=== PATIENT | female | born 1945 | race Caucasian/White ===

== ENCOUNTER 2019-05-28 06:57 | Inpatient (IN) ==
[2019-05-28 08:26] LABS: VBG Base Excess -25.6 MEQ/L (0-4); VBG PCO2 22.3 MMHG (41-51); VBG PH 6.985
[2019-05-28 08:52] LABS: Basophils # 0.1 10*3/uL (0.0-0.2); Basophils % 0.6 % (0.0-0.8); Eosinophils # 0.1 10*3/uL (0.0-0.87); Eosinophils % 0.3 % (0.00-10.9); Hematocrit 38.9 VOL% (35.7-47.0); Immature Granulocytes % 1.9 %; Immature Granulocytes Absolute 0.39 #; Lymphocytes # 1.8 10*3/uL (1.4-4.0); Lymphocytes % 8.9 % (21.3-54.2); Mean Corpuscular HGB Conc 28.8 GM/DL (32-36); Mean Corpuscular Volume 103.7 FL (87-102); Mean Platelet Volume 10.8 FL (9.6-12.0); Monocytes % 7.2 % (1.7-12.7); Neutrophils % 81.1 % (38.7-73.9); Platelet Count 367 T/CUMM (130-400); Red Blood Count 3.75 MC/CUMM (3.8-5.5); Red Cell Distribution Width 13.8 % (9.3-17.3); White Blood Count 20.5 T/CUMM (4-12)
[2019-05-28 08:55] LABS: Hemoglobin 11.2 GM/DL (12.0-16.0)
[2019-05-28 09:00] LABS: Amorphous Crystals,Urine Few /HPF (Few); Apearance,Urine Slightly Hazy (Clear); Bilirubin,Urine Negative (Negative); Blood, Urine Negative (Negative); Glucose,Urine (UA) >=500 mg/dL (Negative); Ketones,Urine 20 mg/dL (Negative); Mucus,Urine Occasional /LPF (Occasional); Nitrite,Urine Negative (Negative); Protein,Urine Negative; RBC,Urine <1 /HPF (0-4); Squamous Epithelial Cell,Urine Occasional /HPF (0-10); Urine Color Yellow (Yellow); Urine Specific Gravity 1.017 (1.001-1.035); Urine Urobilinogen < 2.0 EU/DL (0.2-1.0); WBC,Urine <1 /HPF (0-6)
[2019-05-28 09:02] LABS: Eosinophils 2 % (0-10); Hypochromasia Slight; Lymphocytes 8 % (20-55); Platelet Estimate Adequate; Segmented Neutrophils 82 % (50-85); Total Cells Counted 100
[2019-05-28 09:08] LABS: Alanine Aminotransferase 24 U/L (13-56); Albumin 3.6 G/DL (3.4-5.0); Alkaline Phosphatase 113 U/L (45-117); Aspartate Amino Transferase 18 U/L (0-37); Blood Urea Nitrogen 47 MG/DL (7-18); Calcium 9.8 MG/DL (8.5-10.1); Estimated Glom Filtration Rate 21 ML/MIN; Osmolality,Calculated 319.2 MOS/KG (273-304); Total Protein 7.7 G/DL (6.4-8.3)
[2019-05-28 09:11] LABS: Glucose 1061 MG/DL (74-106)
[2019-05-28 09:23] LABS: Barbiturates Screen,Urine Negative (Negative); Benzodiazepines Screen,Urine Negative (Negative); Cannabinoid Screen,Urine Negative (Negative); Opiate Screen,Urine Negative (Negative); Phencyclidine Screen,Urine Negative (Negative)
[2019-05-28] MEDS ORDERED: SODIUM CHLORIDE 0.9% 2,000 ML IV STA (09:28)
[2019-05-28] MEDS ORDERED: INSULIN REGULAR 100 UNIT/ML IV STA ×2 (09:54→14:10)
[2019-05-28] MEDS ORDERED: LORazepam INJ 40 MG in DEXTROSE 5% 30 ML IV PRN (09:55)
[2019-05-28] MEDS ORDERED: ONDANSETRON 4 MG/2 ML VIAL IV PRN (09:55)
[2019-05-28] MEDS ORDERED: SODIUM CHLORIDE 0.9% 2,100 ML IV ONE (09:55)
[2019-05-28] MEDS ORDERED: ALBUTEROL 2.5 MG/3 ML NEB RESP TX PRN (09:55)
[2019-05-28] MEDS ORDERED: SODIUM BICARBONATE 50 MEQ/50 ML VIAL IV ONE ×2 (09:55→18:00)
[2019-05-28] MEDS ORDERED: EPINEPHrine 1 MG/10 ML SYRINGE ONE (09:59)
[2019-05-28] MEDS ORDERED: NOREPINEPHRINE 8 MG in SODIUM CHLORIDE 0.9% 242 ML IV SCH (10:00)
[2019-05-28] MEDS ORDERED: EPINEPHrine 1 MG/10 ML SYRINGE IV ONE (10:00)
[2019-05-28] MEDS ORDERED: ROCURONIUM 100 MG/10 ML VIAL IV ONE ×2 (10:00→11:12)
[2019-05-28] MEDS ORDERED: ETOMIDATE 20 MG/10 ML VIAL IV ONE ×2 (10:00→11:10)
[2019-05-28] MEDS ORDERED: NOREPINEPHRINE 4 MG/4 ML VIAL IV ONE (10:08)
[2019-05-28] MEDS ORDERED: SODIUM BICARB INJ 100 MEQ in STERILE WATER INJ 400 ML IV PRN (10:13)
[2019-05-28] MEDS ORDERED: MAGNESIUM SULF RIDER 4 GM in PREMIX 1 EACH IV PRN (10:13)
[2019-05-28] MEDS ORDERED: DEXTROSE 50% 25 GM/50 ML VIAL IV PRN ×2 (10:13)
[2019-05-28] MEDS ORDERED: POTASSIUM CHLORIDE RIDER 10 MEQ in PREMIX 1 EACH IV PRN (10:13)
[2019-05-28] MEDS ORDERED: SODIUM PHOSPHATE INJ 17.6 MMOL in SODIUM CHLORIDE 0.9% 250 ML IV PRN (10:13)
[2019-05-28] MEDS ORDERED: MAGNESIUM SULF RIDER 2 GM in PREMIX 1 EACH IV PRN (10:13)
[2019-05-28] MEDS ORDERED: NOREPINEPHRINE 4 MG in SODIUM CHLORIDE 0.9% 242 ML IV PRN (11:04)
[2019-05-28] MEDS ORDERED: NOREPINEPHRINE 4 MG in SODIUM CHLORIDE 0.9% 246 ML IV PRN (11:07)
[2019-05-28] MEDS ORDERED: HEPARIN/NACL 0.9% 2 UNITS/ML 500 ML IV ONE (11:17)
[2019-05-28] MEDS ORDERED: VANCOMYCIN INJ 1,000 MG in SODIUM CHLORIDE 0.9% 250 ML IV PRN (11:28)
[2019-05-28] MEDS: INSULIN REGULAR DRIP 100 ML IV PRN ×2 (11:50→19:04)
[2019-05-28] MEDS: SODIUM CHLORIDE 0.9% 1,000 ML IV SCH ×2 (11:51→13:36)
[2019-05-28] MEDS ORDERED: CALCIUM GLUCONATE 2,000 MG in SODIUM CHLORIDE 0.9% 100 ML IV ONE (12:00)
[2019-05-28 12:13] LABS: Calcium 8.7 MG/DL (8.5-10.1); Osmolality,Calculated 328.7 MOS/KG (273-304)
[2019-05-28 12:30] LABS: ABG HCO3 8.7 MMOL/L (20-26); ABG Oxygen Saturation 99.7 % (95-100); ABG PCO2 28.1 MM HG (35-48); ABG TCO2 7.4 MMOL/L (23-27)
[2019-05-28 12:32] LABS: ABG PH 7.044 (7.35-7.45)
[2019-05-28] MEDS: INSULIN REGULAR 100 UNIT/ML IV PRN (12:40)
[2019-05-28] MEDS: PIPERACILLIN/TAZOBACTAM 3,375 MG in SODIUM CHLORIDE 0.9% 100 ML IV SCH ×2 (12:58→19:00)
[2019-05-28] MEDS: FAMOTIDINE 20 MG/2 ML VIAL IV SCH (13:03)
[2019-05-28] MEDS: ALBUTEROL/IPRATROPIUM 3 ML NEB RESP TX SCH ×2 (13:30→19:07)
[2019-05-28] MEDS ORDERED: VANCOMYCIN INJ 1,000 MG in SODIUM CHLORIDE 0.9% 250 ML IV ONE (14:00)
[2019-05-28 14:25] LABS: Calcium 8.2 MG/DL (8.5-10.1); Osmolality,Calculated 330.4 MOS/KG (273-304)
[2019-05-28] MEDS ORDERED: SODIUM CHLORIDE 0.9% 1,000 ML IV SCH (15:13)
[2019-05-28 16:19] LABS: ABG PCO2 23.5 MM HG (35-48)
[2019-05-28 16:20] LABS: ABG Base Excess -22.4 MMOL/L (-2.5-2.5); ABG HCO3 6.4 MMOL/L (20-26); ABG Oxygen Saturation 14.7 % (95-100); ABG TCO2 7.1 MMOL/L (23-27)
[2019-05-28 16:22] LABS: ABG PH 7.052 (7.35-7.45)
[2019-05-28] MEDS: SODIUM CHLORIDE 23.4% CONC INJ 38.5 MEQ, SODIUM BICARB INJ 100 MEQ in STERILE WATER INJ... IV SCH ×2 (17:50→21:57)
[2019-05-28] MEDS ORDERED: SODIUM BICARB INJ 50 MEQ in DEXTROSE 5% 1,000 ML IV SCH (18:00)
[2019-05-28 18:21] LABS: ABG Base Excess -14.6 MMOL/L (-2.5-2.5); ABG HCO3 11.3 MMOL/L (20-26); ABG Oxygen Saturation 99.2 % (95-100); ABG PCO2 26.7 MM HG (35-48); ABG PH 7.243 (7.35-7.45); ABG PO2 323.5 MM HG (80-95); ABG TCO2 12.1 MMOL/L (23-27)
[2019-05-28 19:56] LABS: Calcium 8.4 MG/DL (8.5-10.1)
[2019-05-28] MEDS: POTASSIUM CHLORIDE RIDER 20 MEQ in PREMIX 1 EACH IV PRN ×2 (20:40→23:23)
[2019-05-28 22:16] LABS: ABG Base Excess -7.2 MMOL/L (-2.5-2.5); ABG HCO3 18.6 MMOL/L (20-26); ABG PCO2 28.3 MM HG (35-48); ABG PH 7.385 (7.35-7.45); ABG TCO2 15.7 MMOL/L (23-27)
[2019-05-28 22:41] LABS: Osmolality,Calculated 323.6 MOS/KG (273-304)
[2019-05-29] MEDS: ALBUTEROL/IPRATROPIUM 3 ML NEB RESP TX SCH ×4 (01:54→19:33)
[2019-05-29] MEDS: SODIUM CHLORIDE 0.9% 1,000 ML IV SCH ×2 (02:57→09:29)
[2019-05-29] MEDS: PIPERACILLIN/TAZOBACTAM 3,375 MG in SODIUM CHLORIDE 0.9% 100 ML IV SCH ×3 (02:57→18:01)
[2019-05-29] MEDS: INSULIN REGULAR 100 UNIT/ML IV PRN ×4 (03:25→16:18)
[2019-05-29 03:36] LABS: Basophils % 0.2 % (0.0-0.8); Hematocrit 24.2 VOL% (35.7-47.0); Hemoglobin 8.1 GM/DL (12.0-16.0); Immature Granulocytes % 0.8 %; Immature Granulocytes Absolute 0.11 #; Lymphocytes # 1.3 10*3/uL (1.4-4.0); Lymphocytes % 9.6 % (21.3-54.2); Mean Corpuscular HGB Conc 33.5 GM/DL (32-36); Mean Corpuscular Volume 88.6 FL (87-102); Neutrophils % 82.4 % (38.7-73.9); Platelet Count 188 T/CUMM (130-400); Red Blood Count 2.73 MC/CUMM (3.8-5.5); Red Cell Distribution Width 13.5 % (9.3-17.3); White Blood Count 13.1 T/CUMM (4-12)
[2019-05-29 03:43] LABS: INR 1.1; PT Patient Result 11.6 SECS (9.6-12.2)
[2019-05-29 03:54] LABS: ABG Base Excess -3.6 MMOL/L (-2.5-2.5); ABG HCO3 21.4 MMOL/L (20-26); ABG PCO2 23.7 MM HG (35-48); ABG PH 7.502 (7.35-7.45); ABG TCO2 17.2 MMOL/L (23-27)
[2019-05-29 04:02] LABS: Albumin 2.3 G/DL (3.4-5.0); Bilirubin,Total 0.4 MG/DL (0.2-1.0); Calcium 7.6 MG/DL (8.5-10.1); Osmolality,Calculated 312.6 MOS/KG (273-304); Risk Ratio 2.24; Total Protein 5.2 G/DL (6.4-8.3)
[2019-05-29] MEDS: SODIUM CHLORIDE 23.4% CONC INJ 38.5 MEQ, SODIUM BICARB INJ 100 MEQ in STERILE WATER INJ... IV SCH (09:01)
[2019-05-29 09:12] LABS: Calcium 7.6 MG/DL (8.5-10.1); Osmolality,Calculated 308.7 MOS/KG (273-304)
[2019-05-29 09:31] LABS: ABG Base Excess -6.7 MMOL/L (-2.5-2.5); ABG HCO3 18.9 MMOL/L (20-26); ABG Oxygen Saturation 99.8 % (95-100); ABG PCO2 28.6 MM HG (35-48); ABG TCO2 16.1 MMOL/L (23-27)
[2019-05-29] MEDS: SODIUM CHLORIDE 0.45% 1,000 ML IV SCH ×4 (09:58→22:25)
[2019-05-29] MEDS: POTASSIUM CHLORIDE RIDER 20 MEQ in PREMIX 1 EACH IV PRN ×3 (10:46→23:54)
[2019-05-29] MEDS: SODIUM BICARB INJ 100 MEQ in DEXTROSE 5% NACL 0.22% 1,000 ML IV SCH (10:55)
[2019-05-29] MEDS ORDERED: VANCOMYCIN INJ 1,000 MG in SODIUM CHLORIDE 0.9% 250 ML IV ONE (11:00)
[2019-05-29] MEDS: FAMOTIDINE 20 MG/2 ML VIAL IV SCH (12:26)
[2019-05-29 12:52] LABS: ABG HCO3 21.1 MMOL/L (20-26); ABG Oxygen Saturation 99.8 % (95-100); ABG PCO2 32.2 MM HG (35-48); ABG PH 7.403 (7.35-7.45); ABG TCO2 18.7 MMOL/L (23-27)
[2019-05-29 13:14] LABS: Calcium 7.5 MG/DL (8.5-10.1); Osmolality,Calculated 306.6 MOS/KG (273-304)
[2019-05-29] MEDS: DEXT 5% NACL 0.45% KCL 20 MEQ 20 MEQ/1,000 ML BAG IV SCH ×2 (14:44→20:46)
[2019-05-29 17:18] LABS: Calcium 7.3 MG/DL (8.5-10.1); Osmolality,Calculated 304.6 MOS/KG (273-304)
[2019-05-29] MEDS: SODIUM CHLOR 0.45% KCL 20 MEQ 20 MEQ/1,000 ML BAG IV SCH ×2 (17:40→21:41)
[2019-05-29 21:47] LABS: Osmolality,Calculated 299.4 MOS/KG (273-304)
[2019-05-29] MEDS ORDERED: INSULIN REGULAR 100 UNIT/ML SUBCUT SCH (22:00)
[2019-05-30] MEDS: ALBUTEROL/IPRATROPIUM 3 ML NEB RESP TX SCH ×4 (00:09→19:24)
[2019-05-30] MEDS: INSULIN REGULAR 100 UNIT/ML SUBCUT SCH ×6 (00:47→20:34)
[2019-05-30] MEDS: PIPERACILLIN/TAZOBACTAM 3,375 MG in SODIUM CHLORIDE 0.9% 100 ML IV SCH ×3 (01:56→18:57)
[2019-05-30 03:36] LABS: Basophils # 0.1 10*3/uL (0.0-0.2); Basophils % 0.3 % (0.0-0.8); Hematocrit 22.2 VOL% (35.7-47.0); Hemoglobin 7.4 GM/DL (12.0-16.0); Immature Granulocytes % 0.9 %; Immature Granulocytes Absolute 0.15 #; Lymphocytes # 1.9 10*3/uL (1.4-4.0); Lymphocytes % 11.9 % (21.3-54.2); Mean Corpuscular HGB Conc 33.3 GM/DL (32-36); Mean Corpuscular Volume 90.2 FL (87-102); Mean Platelet Volume 9.8 FL (9.6-12.0); Monocytes % 4.7 % (1.7-12.7); Neutrophils % 82.2 % (38.7-73.9); Platelet Count 120 T/CUMM (130-400); Red Blood Count 2.46 MC/CUMM (3.8-5.5); Red Cell Distribution Width 14.6 % (9.3-17.3); White Blood Count 15.8 T/CUMM (4-12)
[2019-05-30 03:44] LABS: PT Patient Result 10.9 SECS (9.6-12.2)
[2019-05-30 03:47] LABS: Alanine Aminotransferase 22 U/L (13-56); Alkaline Phosphatase 75 U/L (45-117); Aspartate Amino Transferase 32 U/L (0-37); Bilirubin,Total < 0.39 MG/DL (0.2-1.0); Blood Urea Nitrogen 25 MG/DL (7-18); Calcium 7.4 MG/DL (8.5-10.1); Estimated Glom Filtration Rate 40 ML/MIN; Glucose 216 MG/DL (74-106); Total Protein 4.9 G/DL (6.4-8.3)
[2019-05-30] MEDS: SODIUM CHLORIDE 0.45% 1,000 ML IV SCH ×3 (06:34→22:38)
[2019-05-30] MEDS: VANCOMYCIN INJ 1,000 MG in SODIUM CHLORIDE 0.9% 250 ML IV SCH (11:30)
[2019-05-30 12:09] LABS: Hematocrit 22.8 VOL% (35.7-47.0); Hemoglobin 7.4 GM/DL (12.0-16.0)
[2019-05-30] MEDS: FAMOTIDINE 20 MG/2 ML VIAL IV SCH (13:55)
[2019-05-30] MEDS ORDERED: SODIUM CHLORIDE 0.9% 1,000 ML IV PRN (14:26)
[2019-05-30 21:20] LABS: Hematocrit 27.4 VOL% (35.7-47.0); Hemoglobin 8.9 GM/DL (12.0-16.0)
[2019-05-31] MEDS: INSULIN REGULAR 100 UNIT/ML SUBCUT SCH ×7 (00:57→23:59)
[2019-05-31] MEDS: ALBUTEROL/IPRATROPIUM 3 ML NEB RESP TX SCH ×4 (01:52→20:04)
[2019-05-31] MEDS: PIPERACILLIN/TAZOBACTAM 3,375 MG in SODIUM CHLORIDE 0.9% 100 ML IV SCH (02:06)
[2019-05-31 04:45] LABS: PT Patient Result 10.6 SECS (9.6-12.2)
[2019-05-31 05:02] LABS: Calcium 7.8 MG/DL (8.5-10.1); Total Protein 4.9 G/DL (6.4-8.3)
[2019-05-31 05:26] LABS: Basophils # 0.1 10*3/uL (0.0-0.2); Basophils % 0.6 % (0.0-0.8); Hematocrit 27.4 VOL% (35.7-47.0); Hemoglobin 8.8 GM/DL (12.0-16.0); Immature Granulocytes % 0.4 %; Immature Granulocytes Absolute 0.04 #; Lymphocytes # 1.8 10*3/uL (1.4-4.0); Lymphocytes % 18.1 % (21.3-54.2); Mean Corpuscular HGB Conc 32.1 GM/DL (32-36); Mean Corpuscular Volume 88.1 FL (87-102); Mean Platelet Volume 9.9 FL (9.6-12.0); Monocytes % 3.4 % (1.7-12.7); Neutrophils % 77.5 % (38.7-73.9); Red Cell Distribution Width 16.8 % (9.3-17.3)
[2019-05-31 05:27] LABS: Platelet Count 85 T/CUMM (130-400); Red Blood Count 3.11 MC/CUMM (3.8-5.5); White Blood Count 9.9 T/CUMM (4-12)
[2019-05-31 05:42] LABS: Hypochromasia 1+
[2019-05-31 05:43] LABS: Platelet Estimate Decreased
[2019-05-31] MEDS: SODIUM CHLORIDE 0.45% 1,000 ML IV SCH ×2 (06:42→16:06)
[2019-05-31] MEDS: VANCOMYCIN INJ 1,000 MG in SODIUM CHLORIDE 0.9% 250 ML IV SCH (08:38)
[2019-05-31] MEDS: FAMOTIDINE 20 MG TABLET PO SCH (10:30)
[2019-05-31] MEDS: SIMVASTATIN 10 MG TABLET PO SCH (12:26)
[2019-05-31] MEDS ORDERED: INSULIN NPH/REGULAR 70/30 100 UNIT/ML SUBCUT SCH (21:00)
[2019-06-01] MEDS: ALBUTEROL/IPRATROPIUM 3 ML NEB RESP TX SCH ×4 (01:20→19:45)
[2019-06-01 05:29] LABS: Basophils % 0.4 % (0.0-0.8); Hemoglobin 8.5 GM/DL (12.0-16.0); Immature Granulocytes % 0.5 %; Immature Granulocytes Absolute 0.04 #; Lymphocytes # 1.2 10*3/uL (1.4-4.0); Lymphocytes % 16.1 % (21.3-54.2); Mean Corpuscular HGB Conc 31.5 GM/DL (32-36); Mean Platelet Volume 10.7 FL (9.6-12.0); Monocytes % 6.4 % (1.7-12.7); Neutrophils % 76.6 % (38.7-73.9); PT Patient Result 10.8 SECS (9.6-12.2); Red Cell Distribution Width 16.9 % (9.3-17.3); White Blood Count 7.3 T/CUMM (4-12)
[2019-06-01 05:47] LABS: Albumin 1.6 G/DL (3.4-5.0); Bilirubin,Total 0.8 MG/DL (0.2-1.0); Calcium 7.7 MG/DL (8.5-10.1); Osmolality,Calculated 295.6 MOS/KG (273-304); Total Protein 4.4 G/DL (6.4-8.3)
[2019-06-01 05:48] LABS: Platelet Count 71 T/CUMM (130-400)
[2019-06-01] MEDS: INSULIN REGULAR 100 UNIT/ML SUBCUT SCH ×4 (05:49→21:19)
[2019-06-01] MEDS: SODIUM CHLORIDE 0.45% 1,000 ML IV SCH (05:50)
[2019-06-01 05:56] LABS: Hypochromasia 1+; Platelet Estimate Decreased
[2019-06-01] MEDS ORDERED: INSULIN NPH/REGULAR 70/30 100 UNIT/ML SUBCUT SCH (08:00)
[2019-06-01] MEDS: FAMOTIDINE 20 MG TABLET PO SCH (08:55)
[2019-06-01] MEDS: SIMVASTATIN 10 MG TABLET PO SCH (08:55)
[2019-06-01] MEDS ORDERED: MAGNESIUM SULF RIDER 2 GM in PREMIX 1 EACH IV ONE (14:30)
[2019-06-01] MEDS ORDERED: TUBERCULIN SKIN TEST 0.1 ML SYRINGE INTRADERM ONE (15:18)
[2019-06-01] MEDS: INSULIN NPH/REGULAR 70/30 100 UNIT/ML SUBCUT SCH (17:26)
[2019-06-02 00:57] LABS: Basophils % 0.4 % (0.0-0.8); Eosinophils # 0.1 10*3/uL (0.0-0.87); Eosinophils % 0.6 % (0.00-10.9); Hematocrit 29.8 VOL% (35.7-47.0); Hemoglobin 9.5 GM/DL (12.0-16.0); Immature Granulocytes % 0.2 %; Immature Granulocytes Absolute 0.02 #; Lymphocytes # 2.1 10*3/uL (1.4-4.0); Lymphocytes % 24.7 % (21.3-54.2); Mean Corpuscular HGB Conc 31.9 GM/DL (32-36); Mean Platelet Volume 10.3 FL (9.6-12.0); Monocytes % 11.3 % (1.7-12.7); Neutrophils % 62.8 % (38.7-73.9); Red Blood Count 3.35 MC/CUMM (3.8-5.5); Red Cell Distribution Width 16.3 % (9.3-17.3); White Blood Count 8.5 T/CUMM (4-12)
[2019-06-02 00:58] LABS: Platelet Count 100 T/CUMM (130-400)
[2019-06-02] MEDS: ALBUTEROL/IPRATROPIUM 3 ML NEB RESP TX SCH ×4 (01:00→19:31)
[2019-06-02 01:30] LABS: Hypochromasia Slight; Ovalocytes 1+; Platelet Estimate Adequate
[2019-06-02] MEDS: INSULIN REGULAR 100 UNIT/ML SUBCUT SCH ×4 (07:39→21:44)
[2019-06-02 08:16] LABS: Alanine Aminotransferase 36 U/L (13-56); Alkaline Phosphatase 107 U/L (45-117); Aspartate Amino Transferase 33 U/L (0-37); Bilirubin,Total < 0.39 MG/DL (0.2-1.0); Blood Urea Nitrogen 9 MG/DL (7-18); Calcium 8.3 MG/DL (8.5-10.1); Estimated Glom Filtration Rate 62 ML/MIN; Osmolality,Calculated 281.8 MOS/KG (273-304); Total Protein 5.5 G/DL (6.4-8.3)
[2019-06-02 08:32] LABS: Glucose 38 MG/DL (74-106)
[2019-06-02] MEDS: SIMVASTATIN 10 MG TABLET PO SCH (09:02)
[2019-06-02] MEDS: INSULIN NPH/REGULAR 70/30 100 UNIT/ML SUBCUT SCH (09:02)
[2019-06-02] MEDS: FAMOTIDINE 20 MG TABLET PO SCH (09:02)
[2019-06-02] MEDS ORDERED: POTASSIUM CHLORIDE 20 MEQ TABLET PO ONE (12:00)
[2019-06-02] MEDS ORDERED: INSULIN NPH/REGULAR 70/30 100 UNIT/ML SUBCUT SCH (17:00)
[2019-06-02] MEDS ORDERED: DEXTROSE 10% 250 ML IV ONE (20:54)
[2019-06-02] MEDS ORDERED: GLUCAGON 1 MG VIAL ONE (20:55)
[2019-06-02] MEDS ORDERED: GLUCAGON 1 MG VIAL IM ONE (21:02)
[2019-06-03] MEDS: ALBUTEROL/IPRATROPIUM 3 ML NEB RESP TX SCH ×3 (02:15→13:25)
[2019-06-03 04:50] LABS: Basophils % 0.4 % (0.0-0.8); Hematocrit 23.9 VOL% (35.7-47.0); Hemoglobin 7.7 GM/DL (12.0-16.0); Immature Granulocytes % 0.5 %; Immature Granulocytes Absolute 0.04 #; Lymphocytes # 1.9 10*3/uL (1.4-4.0); Lymphocytes % 25.7 % (21.3-54.2); Mean Corpuscular HGB Conc 32.2 GM/DL (32-36); Mean Corpuscular Volume 88.2 FL (87-102); Mean Platelet Volume 10.6 FL (9.6-12.0); Monocytes % 11.8 % (1.7-12.7); Neutrophils % 61.6 % (38.7-73.9); Platelet Count 101 T/CUMM (130-400); Red Blood Count 2.71 MC/CUMM (3.8-5.5); Red Cell Distribution Width 16.1 % (9.3-17.3); White Blood Count 7.3 T/CUMM (4-12)
[2019-06-03 05:00] LABS: Calcium 8.4 MG/DL (8.5-10.1); Osmolality,Calculated 288.8 MOS/KG (273-304)
[2019-06-03] MEDS ORDERED: INSULIN NPH/REGULAR 70/30 100 UNIT/ML SUBCUT SCH (08:00)
[2019-06-03] MEDS: FAMOTIDINE 20 MG TABLET PO SCH (08:56)
[2019-06-03] MEDS: INSULIN REGULAR 100 UNIT/ML SUBCUT SCH ×2 (08:56→12:33)
[2019-06-03] MEDS: SIMVASTATIN 10 MG TABLET PO SCH (08:56)
[2019-06-03] MEDS ORDERED: SODIUM CHLORIDE 0.9% 1,000 ML IV PRN ×2 (09:05→09:27)
[2019-06-03 15:02] VITALS: BP 137/64
== END 2019-06-03 15:15 | DRG 208 ==
LOC: EDBD → N.ED 06:57 → N.EDINP 09:46 → SUATTDRO 09:46 → N.ICU 10:21 → N.2E 05-31 14:08
PROVIDERS: ADMIT Internal Medicine Nephrology; ATTEND Internal Medicine